=== PATIENT | female | born 1980 | race Two or more races ===

== ENCOUNTER 2017-06-05 19:27 | Emergency (ER) | payer SELFPAY ==
[~2017-06-05] VITALS: Ht 170.2 cm; Wt 104.3 kg
[2017-06-05 21:20] VITALS: BP 137/73
== END 2017-06-05 21:22 | disposition home or self-care (01) ==
LOC: ER 19:27
DX: M54.5 Low back pain (principal); V49.49XA Driver injured in collision with other motor vehicles in traffic accident, initial encounter; Y93.89 Activity, other specified; Y99.8 Other external cause status; Y92.410 Unspecified street and highway as the place of occurrence of the external cause

== ENCOUNTER 2019-05-14 12:46 | Emergency (ER) | payer SELFPAY ==
[2019-05-14 13:24] VITALS: BP 144/50
[2019-05-14] MEDS ORDERED: ACETAMINOPHEN 325 MG TAB PO ONE (15:15)
== END 2019-05-14 17:28 | disposition home or self-care (01) ==
LOC: ER 12:49
DX: M19.011 Primary osteoarthritis, right shoulder (principal); I10 Essential (primary) hypertension
CPT/HCPCS: 73030; 93005